=== PATIENT | female | born 1950 ===

== ENCOUNTER 2019-01-23 05:09 | Inpatient (IN) | payer OTHER ==
[~2019-01-23] VITALS: Ht 154.9 cm; Wt 73.5 kg
[2019-01-23] VITALS (17 sets, daily range): BP systolic 94–136; BP diastolic 55–77
[2019-01-23] MEDS ORDERED: NKM (05:59)
[2019-01-23] MEDS ORDERED: LR 1000ml 1,000 ML IVLG SCH (06:20)
--- NOTE | 2019-01-23 06:22 | Anethesia Preoperative Eval ---
Anesthesia Pre-op PMH/ROS General Date of Evaluation: Jan 23, 2019 Time of Evaluation: 07:06 Anesthesiologist: Fei ASA Score: ASA 3 Mallampati Score Class I : Soft palate, uvula, fauces, pillars visible Class II: Soft palate, uvula, fauces visible Class III: Soft palate, base of uvula visible Class IV: Only hard plate visible Mallampati Classification: Class II Surgeon: Vincent Diagnosis: Back Pain Surgical Procedure: ALIF L4-5/ L5-S1 Anesthesia History: none Family History: no anesthesia problems Allergies: Coded Allergies: No Known Allergies (Unverified , 01/20/19) Medications: see eMAR Patient NPO?: Yes NPO Date: Jan 22, 2019 NPO Time: 2029 Past Medical History Cardiovascular: Reports: HTN Endocrine: Reports: DM Other: obesity - BMI 32 Anesthesia Pre-op Phys. Exam Physician Exam Last Vital Signs Date Time Temp Pulse Resp B/P (MAP) Pulse Ox O2 Delivery O2 Flow Rate FiO2 01/23/19 06:16 Room Air 01/23/19 05:45 97.3 68 18 134/77 (96) 96 Constitutional: NAD Neurologic: CN 2-12 intact Cardiovascular: RRR Respiratory: CTA Gastrointestinal: S/NT/ND Airway Exam Mallampati Score: Class II MO: limited ROM: limited Teeth: missing, intact Anesthesia Pre-op A/P Risk Assessment & Plan Assessment: ASA 3 Plan: GA, SED, GlideScope Go Status Change Before Surgery: No Pre-Antibiotics Dru Grams Ancef IV Given Within 1 Hr of Incision: Yes Time Given: 07:16 Jadiel Enamorado MD Jan 23, 2019 06:22
[2019-01-23] MEDS ORDERED: Bacitracin 50000 Units Vial ONE (06:28)
[2019-01-23] MEDS ORDERED: Zemuron 50mg/5ml Inj IV ONE (06:28)
[2019-01-23] MEDS ORDERED: Gelfoam Size TOPIC ONE (06:28)
[2019-01-23] MEDS ORDERED: Ropivacaine 5mg/ml Vial 30ml INJ ONE (06:28)
[2019-01-23] MEDS ORDERED: Thrombin 5000 units TOPIC ONE (06:28)
[2019-01-23] MEDS ORDERED: fentaNYL 100 mcg/2 mL IV PRN (06:30)
[2019-01-23] MEDS ORDERED: Metoclopramide 10mg/2ml Inj IVP PRN (06:30)
[2019-01-23] MEDS ORDERED: Ketorolac 30mg Inj IV PRN ×2 (06:30)
[2019-01-23] MEDS ORDERED: Labetalol 5mg/ml 20ml vial IV PRN (06:30)
[2019-01-23] MEDS ORDERED: Acetaminophen (Non formulary) 100 ML IV ONE (06:30)
[2019-01-23] MEDS ORDERED: Hydromorphone 0.5mg/0.5ml inj IVP PRN (06:30)
[2019-01-23] MEDS ORDERED: oxyCODONE HCL/Acetaminophen 5/325mg ORAL PRN (06:30)
[2019-01-23] MEDS ORDERED: Midazolam 2mg/2ml Inj IVP PRN (06:30)
[2019-01-23] MEDS ORDERED: LORazepam Inj 2mg/ml 1ml IV PRN (06:30)
[2019-01-23] MEDS ORDERED: Atropine Sulfate 0.4mg/ml inj IVP PRN (06:30)
[2019-01-23] MEDS ORDERED: Meperidine 50mg/ml Inj(FOR RIGORS ONLY) IVP PRN (06:30)
[2019-01-23] MEDS ORDERED: HYDROcodone/Acetamin 5/325 tab ORAL PRN (06:30)
[2019-01-23] MEDS ORDERED: DiphenhydrAMINE 50mg/ml Inj IVP PRN (06:30)
[2019-01-23] MEDS ORDERED: HYDROcodone/Acetamin 7.5/325 tab ORAL PRN (06:30)
[2019-01-23] MEDS ORDERED: Lidocaine 1% Plain 30 ml INJ ONE (06:45)
[2019-01-23] MEDS ORDERED: Sodium Chloride 10ml vial INJ ONE (06:45)
[2019-01-23] MEDS ORDERED: Lidocaine 1% MPF 10mg/ml 5ml ONE (06:45)
[2019-01-23] MEDS ORDERED: fentaNYL 100 mcg/2 mL IV ONE ×2 (06:46→08:01)
--- NOTE | 2019-01-23 06:58 | Pre-Procedure Note/Attestation ---
Pre-Procedure Note/Attestation Complete Prior to Procedure Planned Procedure: not applicable Procedure Narrative: ALIF L4-L5, L5-S1 Anterior plate fixation: L4-L5, L5-S1. Indications for Procedure Pre-Operative Diagnosis: Post trauma back pain, clinical instability L4-L5, L5-S1. Attestation I attest that I discussed the nature of the procedure; its benefits; risks and complications; and alternatives (and the risks and benefits of such alternatives ), prior to the procedure, with the patient (or the patient's legal personnel representative). I attest that, if there was a reasonable possibility of needing a blood transfusion, the patient (or the patient's legal personnel representative) was given the [place] Department [employer] Services standardized written summary, pursuant to the Adriel Metcalfe Blood Safety Act ([place] Health and Safety Code # 1645, as amended). I attest that I re-evaluated the patient just prior to the surgery and that there has been no change in the patient's H&P, except as documented below: Dandre Kaur MD Jan 23, 2019 06:58
[2019-01-23] MEDS ORDERED: Sterile Water Irrig 1000ml IRRIG ONE (07:00)
[2019-01-23] MEDS ORDERED: Dexamethasone 20mg/5ml IVP ONE (07:00)
[2019-01-23] MEDS ORDERED: NS Irrig 1000ml ONE (07:00)
[2019-01-23] MEDS ORDERED: LR 1000ml ONE (07:00)
[2019-01-23] MEDS ORDERED: Neostigmine 1mg/ml 10ml Inj ONE (07:00)
[2019-01-23] MEDS ORDERED: ceFAZolin sod 1 GM in NS 55 ML IVPB ONE ×2 (07:00→15:00)
[2019-01-23] MEDS ORDERED: Heparin 5000 units/ml inj ONE (07:24)
[2019-01-23] MEDS ORDERED: Phenylephrine 10mg/ml Vial ONE (08:15)
[2019-01-23] MEDS ORDERED: Glycopyrrolate 0.2mg/ml 1ml Vial ONE (09:17)
--- NOTE | 2019-01-23 09:36 | Brief Operative Note ---
Immediate Post Operative Note Operative Note Pre-op Diagnosis: Post trauma back pain, clinical instability L4-L5, L5-S1. Procedure: L4-L5, L5-S1 ALIF Anterior internal plate fixation L4-L5, L5-S1 SSEP magnification xray osteopromotive material Post-op Diagnosis: same as pre-op Findings: consistent w/pre-op dx studies Surgeon: Vincent BENSON Additional Surgeons: Maryam BENSON Anesthesiologist: Fei BENSON Anesthesia: general Specimen: yes Complications: none Condition: stable Fluids: anesthesia Estimated Blood Loss: minimal Drains: none Implant(s) used?: Yes Dandre Kaur MD Jan 23, 2019 09:36
--- NOTE | 2019-01-23 10:15 | Immediate Post-Op Evaluation ---
Immediate Post-Op Evalulation Immediate Post-Op Evalulation Procedure: ALIF L4-5, L5-S1 Date of Evaluation: Jan 23, 2019 Time of Evaluation: 10:27 IV Fluids: 700 LR Blood Products: 0 Estimated Blood Loss: 25 Urinary Output: 0 Blood Pressure Systolic: 94 Blood Pressure Diastolic: 55 Pulse Rate: 66 Respiratory Rate: 16 O2 Sat by Pulse Oximetry: 99 Temperature (Fahrenheit): 97.7 Pain Score (1-10): 2 Nausea: No Vomiting: No Complications 0 Patient Status: awake, reacts, patent, none Hydration Status: adequate Dru Grams Ancef IV Given Within 1 Hr of Incision: Yes Time Given: 07:16 Jadiel Enamorado MD Jan 23, 2019 10:15
[2019-01-23] MEDS ORDERED: LR 1000ml 1,000 ML IV SCH (13:00)
--- NOTE | 2019-01-23 13:03 | Diagnostic Imaging Report ---
INDICATION: Pain, intraoperative TECHNIQUE: Intraoperative imaging Fluoroscopy time: 21.3 seconds Total dose: 0.05930 mGym2 Total number of images: 3 COMPARISON: None FINDINGS: Intraoperative images demonstrate a surgical tool projected at the anterior aspect of what is presumably the L5-S1 disc. Subsequent images demonstrate anterior fusion hardware and disc spacers bridging L4-5 and L5-S1 IMPRESSION:
[2019-01-23] MEDS ORDERED: Morphine Sulfate 2mg/ml Inj(IV/IM USE ONLY) IM PRN (14:01)
[2019-01-23] MEDS: Hydromorphone 0.5mg/0.5ml inj IVP PRN ×2 (14:10→20:16)
--- NOTE | 2019-01-23 14:43 | NUR ---
CASE MANAGEMENT: INITIAL REVIEW 68 YO F PRESENTS TO HOSPITAL FOR SURGERY SI:LUMBAR INSTABILITY. T 97.3 HR 68 RR 18 B/P 134/77 SATS 96% ON RA NO LABS TODAY IS: OR MEDS PATIENT ADMITTED TO MED/SURG 01/23/2019 @ 1233 DCP: PATIENT TO BE DISCHARGED TO HOME ONCE MEDICALLY CLEARED. PLAN OF CARE: Pre-op Diagnosis: Post trauma back pain, clinical instability L4-L5, L5-S1. Procedure: L4-L5, L5-S1 ALIF Anterior internal plate fixation L4-L5, L5-S1 SSEP magnification xray osteopromotive material
--- NOTE | 2019-01-23 17:00 | NUR ---
NURSE NOTES: Pt continued with same fluids of Lactated Ringers. initially at [address] Moreno came and increased fluids. Tolerating fluids well
--- NOTE | 2019-01-23 17:00 | Operative Note - Dictated ---
DATE OF OPERATION: 01/23/2019 SURGEON: Dandre Kaur M.D. ADDITIONAL SURGEON: Vascular surgery, Dr. Espino. Please see separate dictation for vascular approach/closure. ANESTHESIOLOGIST: Jadiel Enamorado M.D. ANESTHESIA: General with intubation. ESTIMATED BLOOD LOSS: 50 mL. COMPLICATIONS: None. POSTOPERATIVE CONDITION: Good/stable. ADMITTING/PREOPERATIVE DIAGNOSIS: 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 OPERATIVE PROCEDURE: 1. ALIF anterolateral interbody fusion, L4-L5, L5-S1. 2. Anterior internal plate fixation. 3. SSEP monitoring. 4. High-powered magnification dissection. 5. Intraoperative fluoroscopy interpreted by surgeon. 6. Placement of osteopromotive material with anterior plate fixation, L4-L5, L5-S1. DESCRIPTION OF PROCEDURE: The patient was brought to the operating room and in the supine position, general anesthesia with intubation was induced. IV antibiotics and IV Decadron were administered 30 minutes prior to incision time. Anterior abdomen was sterilely prepped and draped free in usual sterile fashion. Please see exposure Dr. Espino. L5-S1. Confirmation with fluoroscopic guidance, AP and lateral planes. Markers in place. It was interpreted by surgeons with midline marked accordingly. Annulotomy was performed followed with diskectomy to, but not through the posterior longitudinal ligament. Endplates were denuded to subchondral bone followed with insertion of the appropriate prosthesis determined with trial. Trials and prosthesis with stops to avoid over penetration greater than 1 mm countersunk. The appropriate interbody device Aero-L was packed with osteopromotive material (Bio-4 ). Insertion was undertaken with the appropriate dimensions and followed with deployment/placement of internal fixation pins. SSEP monitoring stable at all times. Anterior plate fixation in a compressive fashion with 4 cortical cancellous screws locked into position. Attention was turned to the L4-L5 interval. Annulotomy was performed followed with diskectomy to the posterior longitudinal ligament. Bone noted with osteopenia. Interbody graft to the appropriate dimensions determined with trial utilization followed with prosthesis placement with osteopromotive material. Internal fixation undertaken with the prosthetic pins. This was followed with anterior internal plate fixation in a compressive fashion. Decrease in bone density noted. Screws locked into position. Tisseel applied. Wound irrigated copiously with antibiotic-containing saline. Closure, please see Dr. Srinivas hill. Dandre Kaur M.D. DR: GUSTAVO JOB#: [id number] CC: Enoch Espino M.D.; Fax#: [phone]
[2019-01-23] MEDS: LR 1000ml 1,000 ML IV SCH ×2 (17:30→20:36)
[2019-01-23] MEDS ORDERED: Chloraseptic Spray 20mL Bottle ORAL PRN (17:45)
[2019-01-23] MEDS: NovoLOG Insulin Flexpen SUBQ SCH ×2 (17:52→20:39)
--- NOTE | 2019-01-23 19:26 | NUR ---
NURSE NOTES: Bed arango given pt voided after surgery. Has complete sensation to bilateral feet. Able to raise them. Pedal pulses palpable. No episodes of vomiting or complaints of nausea. Able to change position well. No concerns verbalized during care. Made aware she will be NPO until further orders, priority is given to passing gas, and having a bm. Family informed that pt is NPO. Educated on importance of not bringing pt food. Ancef given earlier in shift with no noted side effects
--- NOTE | 2019-01-23 19:31 | NUR ---
NURSE NOTES:Patient received from Vanesa VillavicencioPatient patient in bed A/AOX4 . Patient c/o abdominal pain . Patient pain controlled with pain medications on scheduled time .Patient no sob/ nausea and vomiting noted .Patient LH G#18 LR AT 100 cc /HR infusing well. scds in place . Patient encourage IS patient tolerated well .Anterior Abdomen C/D//I .with ice pack . Patient has complete sensation to bilateral feet able to raise them . Pedal pulse palpable . HOB elevated .Patient Kept NPO until further notice .safety/ fall precaution . call light within reach . bed in low position at al times . will continue to monitor
--- NOTE | 2019-01-23 19:31 | NUR ---
HAND-OFF: Report given to Christa MOODY.
--- NOTE | 2019-01-23 20:00 | NUR ---
NURSE NOTES:Palmer Mensah seen patient . no new orders given.
--- NOTE | 2019-01-23 20:40 | Cardiology Progress Note ---
Assessment/Plan Assessment/Plan [id number] full note dictated Objective Last 24 Hour Vital Signs Date Time Temp Pulse Resp B/P (MAP) Pulse Ox O2 Delivery O2 Flow Rate FiO2 01/23/19 12:35 97.4 93 16 126/66 96 Nasal Cannula 3 01/23/19 12:20 91 17 119/62 97 Nasal Cannula 3 01/23/19 12:10 93 16 116/66 97 Nasal Cannula 3 01/23/19 12:00 92 14 118/67 96 Nasal Cannula 3 01/23/19 11:45 91 13 112/61 95 Nasal Cannula 3 01/23/19 11:35 89 15 114/58 96 Nasal Cannula 3 01/23/19 11:25 92 18 136/76 96 Nasal Cannula 3 01/23/19 11:15 80 16 119/61 96 Nasal Cannula 3 01/23/19 11:05 82 15 106/55 97 Nasal Cannula 3 01/23/19 10:55 76 15 109/57 99 Nasal Cannula 3 01/23/19 10:45 73 18 102/61 99 Simple Mask 6 01/23/19 10:35 68 16 106/58 99 Simple Mask 6 01/23/19 10:25 67 17 99/58 99 Simple Mask 6 01/23/19 10:20 67 17 96/55 99 Simple Mask 6 01/23/19 10:16 97.7 66 16 94/55 99 Simple Mask 6 01/23/19 10:15 66 16 99 01/23/19 06:16 Room Air 01/23/19 05:45 97.3 68 18 134/77 (96) 96 Intake and Output 01/22/19 01/23/19 19:00 07:00 # Voids 1 Palmer Juarez MD Jan 23, 2019 20:40
[2019-01-24] VITALS: BP 132/76
[2019-01-24] MEDS: Hydromorphone 0.5mg/0.5ml inj IVP PRN ×5 (00:02→17:02)
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
[2019-01-24 04:00] VITALS: BP 111/56
[2019-01-24] MEDS: LR 1000ml 1,000 ML IV SCH ×2 (04:56→16:43)
[2019-01-24] MEDS: NovoLOG Insulin Flexpen SUBQ SCH ×4 (06:03→20:50)
[2019-01-24] MEDS: HYDROcodone/Acetamin 10/325 tab ORAL PRN ×3 (06:29→19:26)
--- NOTE | 2019-01-24 06:36 | NUR ---
NURSE NOTES:Patient Serbian speaking . LH g#22 IVF infusing well.
--- NOTE | 2019-01-24 07:09 | NUR ---
HAND-OFF: Report given to Nicky Villavicencio patient in stable condition.
--- NOTE | 2019-01-24 07:10 | NUR ---
NURSE NOTES:BEDSIDE ROUNDS WITH LILI SCHULTZ,PT.AWAKE A/OX4,WITH 2LITERS N/C,ABDOMEN DISTENDED,NO BOWEL SOUND ,NOT PASSING GAS YET.PAIN 2/10(WAS JUST MEDICATED BY NIGHT NURSE),USING I/S INSTRUCTED.MOVING ALL EXTREMITIES.WILL CONTINUE PLAN OF CARE.
[2019-01-24 08:00] VITALS: BP 119/56
--- NOTE | 2019-01-24 08:40 | NUR ---
NURSE NOTES:MEDICATED WITH DILAUDID IV PRIOR TO PT ACTIVITY.PAIN LEVEL 10/10.AMBULATED WITH PT.
--- NOTE | 2019-01-24 09:02 | NUR ---
P.T Note: P.T evaluation completed and treatment initiated. Please refer to P.T evaluation for current functional status. Pt is limited by fear of movement due to increasing pain in the abdomen ( incisional site ) , buttocks and Bilateral thighs rated as 5-10/10. Pt premedicated prior to P.T. eval/tx. Pt currently requires extended time and MOD A X 1 transitioning from supine to sit and vice versa, MIN A X 1 for transfers and CGA X 1 for ambulation using the FWW. Pt educated movement precautions and proper body mechanics to apply during ADL/functional mobilities to facilitate ease of mobility while adhering with spinal precautions. Pt will be seen for P.T BID to ensure safety and compliance with spinal precautions in ADL/functional mobilities.
--- NOTE | 2019-01-24 09:33 | 48 Hour Post Anesthesia Eval ---
Post Anesthesia Evaluation Procedure: ALIF L4-5, L5-S1 Date of Evaluation: Jan 24, 2019 Time of Evaluation: 09:33 Blood Pressure Systolic: 119 0: 56 Pulse Rate: 79 Respiratory Rate: 18 Temperature (Fahrenheit): 98.8 O2 Sat by Pulse Oximetry: 95 Airway: patent Nausea: No Vomiting: No Pain Intensity: 2 Hydration Status: adequate Cardiopulmonary Status: Stable Mental Status/LOC: patient returned to baseline Follow-up Care/Observations: 0 Post-Anesthesia Complications: 0 Follow-up care needed: N/A Jadiel Enamorado MD Jan 24, 2019 09:33
[2019-01-24 11:20] VITALS: BP 114/71
--- NOTE | 2019-01-24 13:40 | NUR ---
CASE MANAGEMENT:REVIEW 01/24/19 SI: POD #1 98.8 87 17 114/71 92% ON RA IS: IVF@100/HR IV DILAUDID Q2HRS NORCO PO Q3HRS PRN : MED/SURG [facility]
[2019-01-24 16:01] VITALS: BP 133/72
--- NOTE | 2019-01-24 17:00 | NUR ---
NURSE NOTES:PTS. BROTHER HERE TO VISIT,INTERPRETED RE:THE PURPOSE OF ALTERNATING PAIN PILL AND INJECTIONS.PT. UNDERSTOOD.
[2019-01-24] MEDS ORDERED: LR 1000ml ONE (17:21)
--- NOTE | 2019-01-24 17:54 | NUR ---
NURSE NOTES:SEEN BY DR. SCHULER UPDATED RE:PAIN REGIMEN,.TALKED TO PATIENT INTERPRETED BY BROTHER.. AWARE PT. NOT PASSING GAS YET AND WITH LOW GRADE TEMP.COMPLIANT IN USING IS.
--- NOTE | 2019-01-24 19:20 | Cardiology Progress Note ---
Assessment/Plan Assessment/Plan 1. Newly diagnosed diabetes mellitus. 2. History of lumbar spine instability, now status post surgery., 3. Obesity. 4. History of arthritis nno bm or flatus yet has been walking lo grade fever encouraged to use IS encouraged to ambulate as allowed may need help to have bm if not do so tomorrow Subjective Cardiovascular: Denies: chest pain, lightheadedness, palpitations Respiratory: Denies: shortness of breath Gastrointestinal/Abdominal: Reports: abdominal pain Genitourinary: Denies: burning Objective Last 24 Hour Vital Signs Date Time Temp Pulse Resp B/P (MAP) Pulse Ox O2 Delivery O2 Flow Rate FiO2 01/24/19 17:00 99.4 01/24/19 16:01 100.7 90 18 133/72 (92) 93 01/24/19 11:20 98.8 87 17 114/71 (85) 92 01/24/19 09:33 79 18 95 01/24/19 08:00 98.8 79 18 119/56 (77) 95 01/24/19 07:10 Room Air 01/24/19 06:59 97.9 01/24/19 06:24 97.9 01/24/19 04:00 97.9 83 18 111/56 (74) 95 01/24/19 00:00 98.2 79 18 132/76 (94) 95 79 01/23/19 21:00 Room Air 01/23/19 20:00 98.3 83 17 135/72 (93) 95 General Appearance: no apparent distress, alert Neck: supple Cardiovascular: normal rate, regular rhythm Respiratory/Chest: lungs clear Abdomen: soft, hypoactive bowel sounds, other - dressing clean and dry no sorrounding erythme Extremities: no swelling, other - pneumoatic stocking inpalce Intake and Output 01/23/19 01/24/19 18:59 06:59 Intake Total 1000 ml 900 ml Output Total 50 ml 850 ml Balance 950 ml 50 ml Intake IV Total 1000 ml 900 ml Output Urine Total 850 ml Estimated Blood Loss 50 ml # Voids 5 Palmer Juarez MD Jan 24, 2019 19:20
--- NOTE | 2019-01-24 19:21 | NUR ---
HAND-OFF: Report given to JOHN LIU.
--- NOTE | 2019-01-24 20:05 | NUR ---
NURSE NOTES: Received patient awake,alert,verbal,resting in bed,visitor at bedside.
--- NOTE | 2019-01-24 20:15 | Progress Note ---
DATE: 01/24/2019 ACUTE PAIN MANAGEMENT PHYSICIAN PROGRESS NOTE MEDICATIONS: Medication administration record reviewed. Medications include Tylenol, Mylanta, Soma, Catapres, Benadryl, Pepcid, [place], Dilaudid, sliding-scale insulin, lactated Ringer's fluids, morphine, Zofran, and Chloraseptic spray. LABORATORY STUDIES: No interval laboratory studies. VITAL SIGNS: T-max 100.7, current temperature 99.4, pulse 90, respirations 18, oxygen saturation 93% on room air, and blood pressure 133/72. I spent over 60 minutes in consultation today. I saw the patient at the bedside with the nurse RN, Nicky along with the patient's brother, who interpreted Tanzanian at the bedside. The patient did ambulate out of bed to a chair and later walking in the room with physical therapy. She has been voiding urine well after the Garcia catheter was removed. Her urine appears normal concentration. So, I will continue her IV fluids at the current rate of 100 mL an hour with lactated Ringer's. The patient Accu-Chek readings have been approximately 200. We will continue this current sliding scale insulin orders. After the patient's anterior lumbar interbody fusion procedure, the patient continues to remain NPO except for medications and sips. She has not been passing flatus. She will remain on IV fluids for hydration and we will continue to await evidence of improved and restored bowel function with positive flatus. The patient does not have any nausea symptoms. She states that she is hungry. These are encouraging signs. The abdominal wound dressing is clean and dry. The patient is grossly neurologically intact. The patient is having significant lumbar spine pain, which is quite expected after multilevel lumbar spine fusion surgery. The nurses have been alternating appropriately with breakthrough doses of Soma, IV Dilaudid, and oral hydrocodone. None of these agents had significant side effects and she has no nausea symptoms. I would continue this current analgesic regimen and dosing interval arrangement. A front wheel walker is present at the bedside. I did encourage continued and increased ambulation to help restore bowel function. The patient does have sequential compression pneumatic devices in place. The patient has been rather noncompliant with incentive spirometer. I have explained with a bilingual interpreter, the extreme importance for aggressive incentive spirometer usage. The patient agrees to be more compliant. Overall, the patient is progressing appropriately after her multilevel lumbar spine fusion surgery. We will continue supportive care at this stage this patient's rehabilitation. Joe Crowley M.D. DR: JUDY JOB#: [id number] CC:
[2019-01-24 20:33] VITALS: BP 133/62
--- NOTE | 2019-01-24 21:30 | Operative Note - Dictated ---
DATE OF OPERATION: 01/23/2019 VASCULAR SURGEON: Enoch Espino M.D. SPINE SURGEON: Dandre Kaur M.D. PREOPERATIVE DIAGNOSIS: Lumbar pain. POSTOPERATIVE DIAGNOSIS: Lumbar pain. PROCEDURE PERFORMED: 1. Anterior retroperitoneal exposure, L4-L5 vertebral interspace, left retroperitoneal approach. 2. Anterior retroperitoneal exposure, L5-S1, left retroperitoneal approach. 3. Closure of peritoneum, running closure. INDICATIONS: The patient is a very pleasant woman who was seen in my office prior to surgery. She had no prior anterior spine surgery, history of deep venous thrombosis, or bleeding complications were described. She has been made aware of the risks of surgery including need for vertical midline incision, possibly vascular injury, deep venous thrombosis, and bleeding complications were explicitly discussed with her. She understands these risks and does wish to proceed. DESCRIPTION OF FINDINGS: A low vertical midline incision was used. A left retroperitoneal approach was used. There was a small peritoneal tear made anteriorly just lateral to the rectus abdominis during blunt mobilization of the peritoneum and this was repaired primarily with running 3-0 Vicryl suture. There was no underlying bowel injury or involvement. There was no ureteral violation. There was no vascular injury. Exposure of L5-S1 was obtained first below the iliac bifurcation and exposure of L4-L5 was obtained above the iliac bifurcation with confirmation using fluoroscopy. On completion, the peritoneal repair was intact. The ureter was intact. BLOOD LOSS: Less than 100 mL. COMPLICATIONS: None. DESCRIPTION OF PROCEDURE: The patient was taken to the operating room. General anesthesia was used. Antibiotics were given. The patient's abdomen was prepped and draped. Appropriate time-out procedure was taken. A low vertical midline incision was made infraumbilically. The anterior fascia was incised longitudinally in midline. A plane was identified posterior to the left rectus abdominis and developed posterolaterally towards the patient's left. Retroperitoneal space was entered below the arcuate line. The peritoneum and ureter were mobilized towards the patient's right exposing the left common iliac artery and vein. During this mobilization, there was a small peritoneal tear noted and this was repaired at the completion of the case as dictated. The dissection was carried medial to the left common iliac vein. The middle sacral vessel was ligated using bipolar electrocautery and divided. The iliac vessels were retracted laterally and then fluoroscopy was used to confirm L5-S1, and then instrumentation was performed at L5-S1 as dictated separately. The retractor was then repositioned above the iliac bifurcation. Dissection was carried lateral to the left common iliac vein. The iliolumbar vein was identified and ligated with vascular clips and divided. The L4 segmental vessels were identified and ligated with vascular clips. Once this was done, the left iliac artery and vein were retracted toward the patient's right exposing the anterior surface of the L4-L5. The Omni retractor blade was then set in place. Fluoroscopy was then used to confirm the appropriate level and instrumentation was then performed at L4-L5 as dictated separately. On completion, retractor was gently removed. The peritoneum and ureter were intact. Iliac vessels were intact. Anterior fascia was then closed using #1 PDS in running fashion and the skin and subcutaneous tissue were closed with 3-0 Vicryl and 4-0 Monocryl running subcuticular closure technique. Estimated blood loss was less than 100 mL. Complications were none. Enoch Espino M.D. DR: Joe JOB#: [id number] CC: Feroz Lion M.D. ; FAX#: [phone]
[2019-01-25] MEDS: LR 1000ml 1,000 ML IV SCH (02:40)
[2019-01-25 04:17] VITALS: BP 133/66
[2019-01-25] MEDS: NovoLOG Insulin Flexpen SUBQ SCH ×4 (05:36→21:04)
--- NOTE | 2019-01-25 07:20 | NUR ---
HAND-OFF: Report given to Elodia Broderick RN.
--- NOTE | 2019-01-25 07:30 | NUR ---
NURSE NOTES: Patient is in bed awake and able to verbalize needs. Stable. Complains of pain but does not want any medication for pain. Patient encouraged to use call light for assistance, verbalized understanding. Patient is in bed in locked and lowest position with call light within reach. Will continue to monitor.
[2019-01-25 08:00] VITALS: BP 142/74
[2019-01-25] MEDS: Hydromorphone 0.5mg/0.5ml inj IVP PRN ×2 (09:34→16:07)
[2019-01-25] MEDS: HYDROcodone/Acetamin 10/325 tab ORAL PRN ×2 (10:41→21:09)
--- NOTE | 2019-01-25 10:41 | NUR ---
NURSE NOTES: Administered [place] as ordered by Dr. Crowley. Patient tolerated well. No adverse reactions noted. Patient is stable.
[2019-01-25 12:00] VITALS: BP 136/69
[2019-01-25 16:00] VITALS: BP 121/65
--- NOTE | 2019-01-25 19:15 | Progress Note ---
DATE: 01/25/2019 ACUTE PAIN MANAGEMENT PHYSICIAN PROGRESS NOTE MEDICATIONS: Medication administration record reviewed. Medications include IV fluids, Pepcid, and sliding scale insulin. P.r.n. medicines include Dilaudid, Benadryl, Zofran, Mylanta, Tylenol, Chloraseptic spray, [place], and Soma. LABORATORY STUDIES: No interval laboratory studies. OBJECTIVE: Vital signs within normal limits. Afebrile, pulse 87, respirations 18, and blood pressure 136/69. Oxygen saturation 94% on room air. I spent over 60 minutes in consultation today. I saw the patient at bedside with the nurse, HEIDY Clifton, and the nurse, HEIDY Alexis, who interpreted French. The patient has been much more ambulatory today. She also has been much more compliant using her incentive spirometer. She has been afebrile for over 24 hours . I did encourage continued increased ambulation and incentive spirometer usage for good pulmonary toilet. The patient is starting to feel abdominal bloating. She remains yet to pass flatus. However, the patient has started burping and we would expect flatus to occur in the next 12 to 24 hours. The patient is hungry and has no nausea symptoms. She denies shortness of breath or chest pain. She is voiding urine well and urine appears normal concentration. I will continue her IV fluids at 100 mL an hour for now. As soon as the patient starts passing flatus, I expect the surgeon, Dr. Kaur will start advancing her diet as tolerated to help expedite her hospital discharge. alternate p.r.n. doses of Dilaudid, [place], and Soma for analgesia. This combination seems to be effective and there has been no signs of oversedation. Joe Crowley M.D. DR: REYMUNDO JOB#: [id number] CC:
--- NOTE | 2019-01-25 19:15 | NUR ---
NURSE NOTES: patient passed gas. Notified Dr. Crowley.
--- NOTE | 2019-01-25 19:35 | NUR ---
HAND-OFF: Report given to Leao RN. Patient is stable.
--- NOTE | 2019-01-25 19:45 | NUR ---
NURSE NOTES: Receive a report from HEIDY Clifton. Done rounds. Pt is awake and alert. Latvian/Khmer speaking. Op site is clear without bleeding signs. SCDS on bilateral. Waiting for Dr. Crowley call to confirm diet after passing gas. Pt and family members are aware. Will continue to monitor.
[2019-01-25 20:00] VITALS: BP 104/69
--- NOTE | 2019-01-25 20:00 | NUR ---
NURSE NOTES: Receive a report from HEIDY Marin. Done rounds. Pt is awake and alert. No acute distress noted. Nausea sense is tolerated. No BM yet. Reeducate to call nurse if pt has BM to check stool and to collect for test. Pt verbalizes understanding. IV hydration on right forearm without infiltration. Will continue to monitor. Addendum: 01/26/19 at 0217 by Vinh Douglas RN CORRECTION: INCORRECT CHARTING
--- NOTE | 2019-01-25 20:06 | Cardiology Progress Note ---
Assessment/Plan Assessment/Plan 1. Newly diagnosed diabetes mellitus. 2. History of lumbar spine instability, now status post surgery., 3. Obesity. 4. History of arthritis no bm or flatus yet has been walking no fever encouraged to use IS encouraged to ambulate as allowed may need help to have bm bs 151-174 bp is fien Subjective Cardiovascular: Denies: chest pain Respiratory: Denies: shortness of breath Gastrointestinal/Abdominal: Reports: constipated; Denies: abdominal pain, nausea Genitourinary: Denies: burning Objective Last 24 Hour Vital Signs Date Time Temp Pulse Resp B/P (MAP) Pulse Ox O2 Delivery O2 Flow Rate FiO2 01/25/19 16:00 98.3 92 18 121/65 (83) 94 01/25/19 12:00 97.7 87 18 136/69 (91) 94 01/25/19 09:00 Room Air 01/25/19 08:00 98.1 89 16 142/74 (96) 94 01/25/19 04:17 98.5 86 18 133/66 (88) 93 01/24/19 21:02 Nasal Cannula 2.0 01/24/19 20:33 99.0 92 18 133/62 (85) 92 General Appearance: no apparent distress, alert Cardiovascular: normal rate Respiratory/Chest: lungs clear Abdomen: soft, hypoactive bowel sounds Extremities: no swelling, other - pneumoatic stockign in palce Intake and Output 01/24/19 01/25/19 18:59 06:59 Intake Total 1100 ml 1100 ml Balance 1100 ml 1100 ml Intake Oral 0 ml IV Total 1100 ml 1100 ml # Voids 2 3 Microbiology Date/Time Source Procedure Growth Status 01/23/19 05:30 Nasal Nares MRSA Culture - Final NO METHICILLIN RESISTANT STAPH AUREUS... Complete Palmer Juarez MD Jan 25, 2019 20:06
--- NOTE | 2019-01-25 21:30 | NUR ---
NURSE NOTES: Receive a call from Dr. Crowley and obtain diet order as DM clear liquid diet. Order noted and carried out. Inform pt and family member. Pt drinks 100ml water. BS intact in 4 quadrants. Will continue to monitor.
[2019-01-26] VITALS: BP 112/59
[2019-01-26] MEDS: HYDROcodone/Acetamin 10/325 tab ORAL PRN ×3 (02:54→17:08)
[2019-01-26 04:00] VITALS: BP 108/64
[2019-01-26] MEDS: NovoLOG Insulin Flexpen SUBQ SCH ×4 (06:19→21:00)
--- NOTE | 2019-01-26 07:00 | Progress Note ---
DATE: 01/26/2019 ACUTE PAIN MANAGEMENT PHYSICIAN PROGRESS NOTE MEDICATIONS: Medication administration record reviewed. Medications include Tylenol, Mylanta, Soma, Catapres, Benadryl, Pepcid, [place], Dilaudid, diabetic medications, Zofran, Chloraseptic spray, and intravenous fluids. LABORATORY STUDIES: No interval laboratory studies. OBJECTIVE: Vital signs within normal limits. Afebrile, pulse 83, respirations 18, blood pressure 108/64, and oxygen saturation 96% on room air. I spent over 60 minutes in consultation today. I saw the patient at the bedside. I discussed the case with the orthopedic floor nurse RN, Vinh, along with the charge nurse, RNChloe. I also discussed the case with the surgeon, Dr. Dandre Kaur. After the patient's ALIF procedure, she is progressing nicely. She started passing positive flatus overnight and we will start her on a diabetic clear liquid diet this morning, to test for tolerability. Dr. Kaur will continue to advance her diet per his discretion. The patient states that her abdominal bloating, which was getting worse yesterday, has improved overnight, with her passing flatus. This is progressing as-expected, and nicely. The patient's pain levels continued to improve even with her increased ambulation. She has not required breakthrough Dilaudid injections for over 12 hours. She is using [place] primarily for analgesia, and already has a supply of [place] for home usage. Rare dosing of Soma has been needed, but nothing in the past 36 hours. The patient increases her ambulation well. She has been more compliant using her incentive spirometer, and is afebrile. The patient denies any shortness of breath or chest pain. As we will be increasing her diet, I will decrease her IV fluid rate to 50 mL an hour and we will Hep-Lock her IV at noon time today. We will continue to wait for improving her bowel function after ALIF procedure. Once the patient has a bowel movement, I expect Dr. Kaur will feel comfortable to discharge patient to home. She has extensive family to assist with activities of daily living. The patient will continue with ambulation and sequential compression pneumatic devices for DVT prophylaxis while here in the hospital. Joe Crowley M.D. DR: JUDY JOB#: [id number] CC:
--- NOTE | 2019-01-26 07:30 | NUR ---
HAND-OFF: Report given to HEIDY Marin. Addendum: 01/26/19 at 0759 by Vinh Douglas RN CORRECTION: INCORRECT PT...
--- NOTE | 2019-01-26 07:30 | NUR ---
NURSE NOTES: Received pt from RN MARIUSZ. Pt is alert and orient x4. pt is in RA, No SOB or acute respiratory distress noted. pt has intact iv access RH 22G is running well. Pt is eating breakfast independently. no complain of pain at this moment. Dr AMEZCUA called and he is aware about pt's condition, no new order to RN. All needs attended, bed is locked and is in the lowest position. call light within easy reach. will continue to monitor.
--- NOTE | 2019-01-26 07:50 | NUR ---
HAND-OFF: Report given to HEIDY Do. Done rounds. Pt had breakfast. Denies pain. Will continue to monitor.
[2019-01-26 08:00] VITALS: BP 136/73
[2019-01-26] MEDS: Docusate 100mg cap ORAL SCH ×2 (08:38→17:07)
[2019-01-26 12:00] VITALS: BP 139/72
--- NOTE | 2019-01-26 15:03 | NUR ---
CASE MANAGEMENT:REVIEW 01/26/19 SI: POD #3 98.3 85 18 139/72 94% ON RA IS: IVF@50/HR COLACE PO BID PEPCID PO BID SS INSULIN AC+HS IV DILAUDID : MED/SURG 3 EAST DCP: FROM HOME
[2019-01-26 16:00] VITALS: BP 131/68
[2019-01-26] MEDS ORDERED: LR 1000ml ONE (17:22)
--- NOTE | 2019-01-26 19:21 | NUR ---
NURSE NOTES: Report taken from HEIDY Do. Patient is awake and in bed, speaks Portuguese, A&Ox4. No signs of distress on room air. Some minor soreness at incision site, 08/21. Skin is c/d/i. Surgical site c/d/i, continue to monitor. IV site c/d/i and patent, running NS at 50mls/hr. Patient is able to ambulate with walker assist to bathroom. has been notified that she has not gone to the bathroom since 01/22, awaiting further orders. Bed in lowest position, call light within reach.
--- NOTE | 2019-01-26 19:29 | NUR ---
HAND-OFF: Report given to HEIDY STRATTON.
[2019-01-26 20:00] VITALS: BP 130/75
[2019-01-26] MEDS ORDERED: Magnesium Citrate Liq Btl ORAL ONE (20:00)
--- NOTE | 2019-01-26 20:00 | Cardiology Progress Note ---
Assessment/Plan Assessment/Plan 1. Newly diagnosed diabetes mellitus. 2. History of lumbar spine instability, now status post surgery., 3. Obesity. 4. History of arthritis no bm or flatus yet has been walking no fever encouraged to use IS encouraged to ambulate as allowed magcitrate 50 cc once bs 122-164 bp is fien Subjective Cardiovascular: Denies: chest pain, lightheadedness, palpitations Respiratory: Denies: shortness of breath Gastrointestinal/Abdominal: Reports: abdominal pain, constipated Genitourinary: Denies: burning Objective Last 24 Hour Vital Signs Date Time Temp Pulse Resp B/P (MAP) Pulse Ox O2 Delivery O2 Flow Rate FiO2 01/26/19 17:38 98.9 01/26/19 16:00 98.9 83 18 131/68 (89) 94 01/26/19 12:00 98.3 85 18 139/72 (94) 94 01/26/19 09:00 Room Air 01/26/19 08:00 98.0 81 18 136/73 (94) 95 01/26/19 04:00 98.2 83 18 108/64 (79) 96 01/26/19 00:00 97.6 91 18 112/59 (76) 95 01/25/19 21:00 Room Air 01/25/19 20:00 98.9 85 18 104/69 (81) 95 General Appearance: no apparent distress, alert Neck: supple Cardiovascular: normal rate Respiratory/Chest: lungs clear, normal breath sounds Abdomen: normal bowel sounds, non tender, soft Extremities: no swelling Intake and Output 01/25/19 01/26/19 19:00 07:00 Intake Total 1190 ml Balance 1190 ml IV Total 1190 ml # Voids 3 4 Palmer Juarez MD Jan 26, 2019 20:00
[2019-01-27] VITALS: BP 146/81
[2019-01-27] MEDS: Hydromorphone 0.5mg/0.5ml inj IVP PRN ×2 (02:13→10:48)
[2019-01-27 04:00] VITALS: BP 136/66
[2019-01-27] MEDS: NovoLOG Insulin Flexpen SUBQ SCH ×4 (06:05→20:33)
--- NOTE | 2019-01-27 07:03 | NUR ---
HAND-OFF: Report given to HEIDY Saxena. VS stable.
--- NOTE | 2019-01-27 07:15 | Progress Note ---
DATE: 01/27/2019 ACUTE PAIN MANAGEMENT PHYSICIAN PROGRESS NOTE MEDICATIONS: Medication administration record reviewed. Medications include Tylenol, Mylanta, Soma, Catapres, Benadryl, Colace, Pepcid, [place], Dilaudid, diabetic medications, and Zofran. LABORATORY STUDIES: No interval laboratory studies. OBJECTIVE: VITAL SIGNS: Within normal limits. Afebrile, pulse 78, respirations 18, blood pressure , oxygen saturation 92% on room air. I spent over 60 minutes in consultation today. I saw the patient at the bedside with the nurse RN, Neel. I discussed the case with the surgeon, Dr. Kaur. Last night, Dr. Juarez evaluated the patient and ordered 50 mL of magnesium citrate to help with her bowel function. The patient did start passing positive flatus. She tolerated several meals of liquids so we will advance her diet this morning. The patient has been very compliant using her incentive spirometer and has been ambulating with minimal assistance and a bed to the restroom and in the hallways. Her pain is well controlled using primarily oral [place]. She does use Dilaudid injections intermittently for breakthrough pain. She is tolerating good oral intake; therefore, I will discontinue IV fluids in order to encourage movement in and out of bed. She is breathing comfortably on room air. Denies any shortness of breath or chest pain. At this point, the patient is progressing very well and we would expect her discharge from the hospital as soon as she has a bowel movement. We will continue supportive care for now, while she continues to advance her ambulation and diet as tolerated. Joe Crowley M.D. DR: PATI JOB#: [id number] CC:
--- NOTE | 2019-01-27 07:30 | NUR ---
NURSE NOTES: Patient alert x4, on room air, no sign of distress and shortness of breath; no sing of chest pain; IV R-Hand 22G NS 50cc running; walker within reach; will check blood sugar as scheduled; dressing dry and intact; patient is aware once able to have a bowel movement will go home. call light within reach; will keep monitoring.
[2019-01-27 08:00] VITALS: BP 155/75
[2019-01-27] MEDS: Docusate 100mg cap ORAL SCH ×2 (08:48→17:12)
[2019-01-27 12:00] VITALS: BP 144/75
--- NOTE | 2019-01-27 15:06 | NUR ---
CASE MANAGEMENT:REVIEW 01/27/19 SI: POD #4 98.0 82 17 144/75 95% ON RA IS: COLACE PO BID PEPCID PO BID SS INSULIN AC+HS IV DILAUDID : MED/SURG 3 EAST DCP: FROM HOME
[2019-01-27] MEDS: HYDROcodone/Acetamin 10/325 tab ORAL PRN (15:52)
[2019-01-27 16:00] VITALS: BP 157/73
--- NOTE | 2019-01-27 19:01 | Cardiology Progress Note ---
Assessment/Plan Assessment/Plan 1. Newly diagnosed diabetes mellitus. 2. History of lumbar spine instability, now status post surgery., 3. Obesity. 4. History of arthritis no bm but has had flatus has been walking no fever encouraged to use IS encouraged to ambulate as allowed magcitrate 50 cc once yest bs 130's-164 bp is higer sicde dc inf soon has good bs shoudl have a bm soon Subjective Cardiovascular: Denies: chest pain, lightheadedness, palpitations Respiratory: Denies: shortness of breath Gastrointestinal/Abdominal: Reports: abdominal pain, constipated Genitourinary: Denies: burning Objective Last 24 Hour Vital Signs Date Time Temp Pulse Resp B/P (MAP) Pulse Ox O2 Delivery O2 Flow Rate FiO2 01/27/19 16:22 98.3 01/27/19 16:00 98.3 83 17 157/73 (101) 95 01/27/19 12:00 98.0 82 17 144/75 (98) 95 01/27/19 11:18 97.3 01/27/19 09:00 Room Air 01/27/19 08:00 97.3 76 17 155/75 (101) 94 01/27/19 04:00 98.2 78 18 136/66 (89) 93 01/27/19 00:00 98.2 81 18 146/81 (102) 99 01/26/19 21:00 Room Air 01/26/19 20:00 98.6 87 16 130/75 (93) 93 General Appearance: no apparent distress, alert Neck: supple Cardiovascular: normal rate Respiratory/Chest: lungs clear, normal breath sounds Abdomen: normal bowel sounds, soft Extremities: no swelling Intake and Output 01/26/19 01/27/19 19:00 07:00 Intake Total 910 ml 360 ml Balance 910 ml 360 ml Intake Oral 360 ml 360 ml IV Total 550 ml # Voids 3 3 Palmer Juarez MD Jan 27, 2019 19:01
--- NOTE | 2019-01-27 19:23 | NUR ---
HAND-OFF: Report given to HEIDY Shelton.
--- NOTE | 2019-01-27 19:32 | NUR ---
NURSE NOTES: Report taken from HEIDY Saxena. Patient is awake and in bed, family at bedside, A&Ox4. No signs of distress on room air. Minor complaint of soreness at surgical site, 09/18. IV site c/d/i and patent, IV fluids D/C per MD. Patient has yet to have a BM, MDs awaiting before allowing patient to D/C. Surgical site c/d/i and no staining, continue to monitor. Bed in lowest position, call light within reach.
[2019-01-27 20:00] VITALS: BP 143/68
[2019-01-28] VITALS: BP 145/86
[2019-01-28 04:00] VITALS: BP 145/80
[2019-01-28] MEDS: NovoLOG Insulin Flexpen SUBQ SCH ×4 (05:55→21:00)
--- NOTE | 2019-01-28 07:28 | NUR ---
HAND-OFF: Report given to Richard Wood RN. Patient is asleep VS stable.
[2019-01-28 08:00] VITALS: BP 148/72
--- NOTE | 2019-01-28 08:00 | NUR ---
NURSE NOTES: Patient is in bed awake and able to verbalize needs. Stable. Denies pain or SOB at this time. Patient is encouraged to use call light for assistance, verbalized understanding. Patient is in bed in locked and lowest position with call light within reach. Will continue to monitor.
[2019-01-28] MEDS: Docusate 100mg cap ORAL SCH ×2 (08:49→17:52)
--- NOTE | 2019-01-28 09:15 | Progress Note ---
DATE: 01/28/2019 ACUTE PAIN MANAGEMENT PHYSICIAN PROGRESS NOTE MEDICATIONS: Medication administration record reviewed. Medications include Colace, Pepcid, diabetic medications, Dilaudid, Benadryl, Zofran, Mylanta, Tylenol, clonidine, [place], and Soma. LABORATORY STUDIES: No interval laboratory studies. OBJECTIVE: VITAL SIGNS: Afebrile, pulse 72, respirations 19, blood pressure 145/80, oxygen saturation 94% on room air. I spent over 60 minutes in consultation today. I saw the patient at the bedside with the nurse RN, Carmen. The patient is ambulating very well. She is moving in and out of bed with . Her pain is well controlled using primarily a p.r.n. [place]. The patient has [place] at home for home usage. She is passing flatus and tolerating advancing diabetic diet without difficulty. She has no shortness of breath or chest pain. She denies any nausea symptoms. We will continue her solid-food diet. We will continue to encourage aggressive ambulation and await a bowel movement prior to the discharge. Joe Crowley M.D. DR: PATI JOB#: [id number] CC:
--- NOTE | 2019-01-28 10:57 | NUR ---
NURSE NOTES: Patient had BM. Will discharge home as ordered. Son will picking belt operator patient later in the day.
[2019-01-28 12:00] VITALS: BP 151/72
[2019-01-28] MEDS ORDERED: METFORMIN HCL500 M1 ORAL (12:43)
--- NOTE | 2019-01-28 12:51 | Cardiology Progress Note ---
Assessment/Plan Assessment/Plan 1. Newly diagnosed diabetes mellitus. 2. History of lumbar spine instability, now status post surgery., 3. Obesity. 4. History of arthritis had bm and flatus has been walking no fever encouraged to use IS encouraged to ambulate as allowed bs 130'[id number] resume metformin Subjective Cardiovascular: Denies: chest pain, lightheadedness, palpitations Respiratory: Denies: shortness of breath, SOB with excertion Gastrointestinal/Abdominal: Denies: abdominal pain, constipated Genitourinary: Denies: burning Objective Last 24 Hour Vital Signs Date Time Temp Pulse Resp B/P (MAP) Pulse Ox O2 Delivery O2 Flow Rate FiO2 01/28/19 12:00 97.9 72 18 151/72 (98) 97 01/28/19 09:00 Room Air 01/28/19 08:00 98.8 96 19 148/72 (97) 95 01/28/19 04:00 98.3 72 19 145/80 (101) 94 01/28/19 00:00 98.7 70 20 145/86 (105) 92 01/27/19 21:00 Room Air 01/27/19 20:00 98.5 75 17 143/68 (93) 94 01/27/19 16:22 98.3 01/27/19 16:00 98.3 83 17 157/73 (101) 95 General Appearance: alert Neck: supple Cardiovascular: normal rate Respiratory/Chest: lungs clear Abdomen: normal bowel sounds, non tender, soft, other - dressing clean and dry no redness sorrounding Intake and Output 01/27/19 01/28/19 19:00 07:00 Intake Total 1000 ml Balance 1000 ml Intake Oral 1000 ml # Voids 4 Palmer Juarez MD Jan 28, 2019 12:51
[2019-01-28] MEDS: HYDROcodone/Acetamin 10/325 tab ORAL PRN (16:11)
[2019-01-28 16:15] VITALS: BP 145/83
[2019-01-28] MEDS ORDERED: metFORMIN 500mg tab ORAL SCH (18:00)
--- NOTE | 2019-01-28 19:20 | NUR ---
NURSE NOTES: Received report & pt from HEIDY Clifton. Pt lying in bed, a&ox4, in room air. No s/s of acute distress & no c/o pain at this time. IV site intact & S/L'd. Surgical dressing C/D/I. Pt to be D/C'd to home today as ordered. Waiting for son to pick her up. All paperwork signed. Will D/C IV later. Bed in lowest position, call light within reach. Will continue to monitor.
--- NOTE | 2019-01-28 19:30 | NUR ---
HAND-OFF: Report given to Sheridan MOODY. Patient is stable. .
[2019-01-28 20:00] VITALS: BP 128/83
--- NOTE | 2019-01-28 21:35 | NUR ---
DISCHARGE NOTE: D/C'd pt to home as ordered. Pt picked up by son. IV D/C'd & ID band removed. All paperwork signed. All belongings packed & signed. No c/o pain & no distress noted; A&ox4. Refused to be wheeled out by wheelchair; Pt has own walker brought by son. Accompanied by son & staff downstairs to private vehicle
--- NOTE | 2019-01-30 14:15 | Discharge Summary ---
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 Patient was admitted for elective surgery. Consultations Dr Juarez - IM/cardio Dr Crowley - pain specialist Procedures s/p by Dr Kaur 1. ALIF anterolateral interbody fusion, L4-L5, L5-S1. 2. Anterior internal plate fixation. 3. SSEP monitoring. 4. High-powered magnification dissection. 5. Intraoperative fluoroscopy interpreted by surgeon. 6. Placement of osteopromotive material with anterior plate fixation, L4-L5, L5-S1. s/p 01/23/[address] Espino ( vascular approach) 1. Anterior retroperitoneal exposure, L4-L5 vertebral interspace, left retroperitoneal approach. 2. Anterior retroperitoneal exposure, L5-S1, left retroperitoneal approach. 3. Closure of peritoneum, running closure. Hospital Course status post surgery course of recovery uneventful initially IV fluids s/p perioperative antibiotics neurovascular status closely monitored, stable incision clean, dry, and intact pain management addressed pain specialist followed; pain controlled remained hemodynamically stable ambulated with PT fall precautions maintained; safe for ambulation DVT prophylaxis provided use of incentive spirometry was encouraged while in the bed initially NPO until bowel function returns when bowel sounds returned and started to pass flatus, started on liquid diet and was advanced as tolerated tolerated diet , IV fluids discontinued Chloraseptic spray provided as needed for comfort GI prophylaxis provided antiemetics were on board as needed blood sugar was closely monitored , initially managed with SSI , after starting diet metformin resumed voided freely bowel regimen instituted patient was stable for discharge discharge instructions provided follow up with surgeon in clinic as outpatient as advised by surgeon FINAL DIAGNOSES 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 s/p ALIF L4-5, L5-S1 Newly diagnosed diabetes Arthritis Obesity Discharge Medications Continued Medications: Metformin Hcl* (Metformin Hcl*) 500 Mg Tablet 500 MG ORAL TWICE A DAY, TAB (This prescription has been renewed) No Known Medications* (NKM - No Known Medications*) . 0 ., 0 Refills (This prescription has been renewed) Discharge Condition Upon Discharge: stable Discharge Disposition Patient was discharged to Home () Discharge Instructions Discharge Instructions Special Instructions I have been assigned to complete a D/C Summary on this account. I was not involved in the patient management Naz Reed NP Jan 30, 2019 14:15
== END 2019-01-28 21:35 | disposition home or self-care (01) | DRG 460 ==
LOC: SDSOVERFLO 05:09 → 3E 13:00
DX: M53.2X6 Spinal instabilities, lumbar region (principal); E11.65 Type 2 diabetes mellitus with hyperglycemia; E66.9 Obesity, unspecified; Z68.30 Body mass index [BMI] 30.0-30.9, adult; G89.18 Other acute postprocedural pain
CPT/HCPCS: 36415; 72020; 76000; 82962; 86850; 86900; 86901; 87081; 94003; 94150; J1815; J2370; J2405; J2710